=== PATIENT | female | born 1985 | race African-American/Black ===

== ENCOUNTER 2022-04-24 17:49 | Emergency (ER) | payer SELFPAY ==
[2022-04-24] MEDS ORDERED: Cephalexin 250 MG CAP ONE (18:19)
[2022-04-24] MEDS ORDERED: Boostrix 0.5 ML (Tdap) VIAL (>/=7 yrs of age) ONE (18:19)
== END 2022-04-24 18:38 | disposition home or self-care (01) ==
LOC: NAV ERS 17:49
DX: S80.812A Abrasion, left lower leg, initial encounter (principal); L08.9 Local infection of the skin and subcutaneous tissue, unspecified; F17.210 Nicotine dependence, cigarettes, uncomplicated; X58.XXXA Exposure to other specified factors, initial encounter
CPT/HCPCS: 90471; 90715